=== PATIENT | female | born 1945 | race Caucasian/White ===

== ENCOUNTER 2024-06-28 14:11 | Emergency (ER) | payer MEDICARE, BC, SELFPAY ==
[2024-06-28 14:14] VITALS: BP 195/113
[2024-06-28 14:39] VITALS: BP 158/79
[2024-06-28 15:28] VITALS: BP 144/72
--- NOTE | 2024-06-28 15:52 | ED.GENMED ---
History of Present Illness
General
Chief Complaint: Blood Pressure Problem
Time Seen by Provider: 06/28/24 15:03
History of Present Illness
History of Present Illness:
78-year-old female presents the emergency department for evaluation of acute onset of dizziness/vertigo and near syncope that occurred earlier today. States she was at her kitchen counter making lunch, when she turned around she noted a sudden
onset of the symptoms. Denies syncope. Currently feels well. She is primarily concerned because she noted progressively elevating blood pressure at home, was taking her pressure every 30 minutes or so. Denies chest pain or shortness of breath
Review of Systems
Review of Systems
Allergies reviewed?: Yes
All Other Systems: ROS reviewed and negative except as documented in HPI and ROS
Phy Exam
Physical Exam
Physical Exam:
GEN: Well appearing, NAD, WDWN
HEENT: Oral mucosa moist, no scleral icterus
Cardiac: Regular rate with bigeminy of extrasystoles, no murmurs
Lung: No respiratory distress, no tachypnea, lungs clear to auscultation bilaterally
MSK: No gross deformity or injuries
Skin: Good color, no pallor or jaundice, no rashes
Neuro: AO x3, cranial nerves II through XII grossly intact, no nystagmus, moves all extremities freely
Psych: Calm, cooperative
Course
Orders/Labs/Results
Orders:
Orders
06/28/24 14:16
EKG [Electrocardiogram (*1)] Urgent
Reason for Study: Vertigo / Dizzy
EKG- Treatment ONCE
06/28/24 16:04
Complete Blood Count/With Diff Urgent
Comprehensive Metabolic Panel Urgent
Abnormal Lab Results
06/28/24
16:04
Absolute Lymphs (auto) 0.8 L 10^3/uL
(1.2-3.4)
Neutrophils % 82.7 H %
(42.2-75.2)
Lymphocytes % 11.4 L %
(20.5-51.1)
BUN 29 H mg/dl
(7-17)
Creatinine 1.3 H mg/dL
(0.6-1.0)
Alkaline Phosphatase 162 H U/L
(38-126)
06/28/24 16:04
06/28/24 16:04
Vital Signs
Initial and Last Documented VS:
Initial Vital Signs
Temp Pulse Resp BP Pulse Ox
98.8 F 86 18 195/113 98
06/28/24 14:14 06/28/24 14:14 06/28/24 14:14 06/28/24 14:14 06/28/24 14:14
Last Documented Vital Signs
Temp Pulse Resp BP Pulse Ox
98.8 F 78 17 155/105 95
06/28/24 14:14 06/28/24 16:30 06/28/24 16:30 06/28/24 16:32 06/28/24 16:30
MDM/Problems Addressed
MDM/Problems Addressed:
Patient is not orthostatic while in the emergency department. She is neurologically intact with unremarkable labs and normal EKG. Likely vasovagal near syncope on the basis of poor fluid intake today however brief episode of vertigo was also
considered. She is stable for outpatient management
*Critical Care Note
Total Time (30-74mins, 75-104mins- exclusive of procedures): Not Applicable
ED Attending Note
-
Portions of this chart may have been created with voice recognition software.� Occasional wrong word or��sound alike� substitutions may have occurred due to the inherent limitations of voice recognition software.
Discharge Plan
Departure
Patient Disposition: Home (Routine Discharge)
Date of Disposition: 06/28/24
Time of Disposition: 16:35
Patient with high blood pressure during this ER visit?: No
Discharge Problem:
Dizziness, Acute dehydration
Instructions: Dehydration, Adult ED
Referrals:
Nishant Baez MD [Family Provider] -
Interventions
Interventions:
*Risk Screen - Suicide Last Done: 06/28/24 14:14
*General Assessment Last Done: 06/28/24 14:14
*Neglect/Abuse Screening Last Done: 06/28/24 14:14
*ED COVID-19 Vaccine History Last Done: 06/28/24 14:14
*Nursing Disposition Last Done: 06/28/24 16:48
ED- Pulmonary Assessment Last Done: 06/28/24 16:00
ED- Neurological Assessment Last Done: 06/28/24 16:00
ED- Cardiac Assessment Last Done: 06/28/24 16:00
Discharge Date and Time
Discharge Date/Time: 06/28/24 16:49
Print Language: [place]
[2024-06-28 16:05] VITALS: BMI 23.5
[2024-06-28 16:15] LABS: % Basophils 0.4 % (0-2); % Eosinophils 0.3 % (0-6); % Immature Granulocytes 0.3 % (0-0.5); % Lymphocytes 11.4 % (20.5-51.1); % Monocytes 4.9 % (1.7-9.3); % Neutrophils 82.7 % (42.2-75.2); Absolute Lymphocytes 0.8 10^3/uL (1.2-3.4); Absolute Monocytes 0.3 10^3/uL (0.1-0.6); Absolute Neutrophils 5.6 10^3/uL (1.4-6.5); Hematocrit 40.3 % (37.0-47.0); Hemoglobin 13.7 g/dL (12.0-16.0); Mean Corpuscular Hgb 29.7 pg (27.0-31.0); Mean Corpuscular Volume 87.4 fL (81.0-99.0); Mean Platelet Volume 10.4 fL (7.4-10.4); Nucleated Red Blood Cells % 0 %; Platelet Count 286 10^3/uL (130-400); Red Blood Cell Count 4.61 10^6/uL (4.20-5.40); White Blood Cell Count 6.8 10^3/uL (4.8-10.8)
[2024-06-28 16:27] LABS: ALT (SGPT) 18 U/L (0-35); AST (SGOT) 30 U/L (14-36); Albumin 4.5 g/dl (3.5-5.0); Alkaline Phosphatase 162 U/L (38-126); Blood Urea Nitrogen 29 mg/dl (7-17); Calcium 9.7 mg/dl (8.4-10.2); Carbon Dioxide 27 mmol/L (22-30); Chloride 101 mmol/L (98-107); Estimated Creatinine Clearance 38 ml/min; Glucose 93 mg/dl (70-99); Potassium 5.1 mmol/L (3.5-5.1); Sodium 139 mmol/L (135-145); Total Bilirubin 0.4 mg/dl (0.2-1.3); Total Protein 7.2 g/dl (6.3-8.2); eGFR 42.62
[2024-06-28 16:32] VITALS: BP 155/105
== END 2024-06-28 16:49 | disposition home or self-care (01) ==
LOC: EMR 14:11
PROVIDERS: Physician Assistant; EMERGENCY PHYSICIAN Emergency Medicine; FAMILY PHYSICIAN Family Medicine
DX: R42 Dizziness and giddiness (principal); E86.0 Dehydration
CPT/HCPCS: 99284; 80053; 85025; 93005

== ENCOUNTER 2024-11-14 10:37 | Emergency (ER) | payer MEDICARE, BC, SELFPAY ==
[2024-11-14 10:51] VITALS: BP 181/85
--- NOTE | 2024-11-14 11:07 | ED.GENMED ---
History of Present Illness
General
Chief Complaint: Fall
Source: patient
Exam Limitations: none
Time Seen by Provider: 11/14/24 10:57
History of Present Illness
History of Present Illness:
79-year-old female presents after trip and fall. She was going for a walk in the park and got her foot caught on the sidewalk and fell hitting the left side of her head. No no loss of conscious but she was very dizzy following the event and
nauseous. She denies significant headache. She feels the nausea has resolved for the time. No neck pain. She denies arm or leg pain. No other complaints at this
Phy Exam
Physical Exam
Physical Exam:
General: Well-appearing female no acute respiratory distress
HEENT normocephalic 3 cm laceration superior to the left eye brow. Pupils equal round reactive to light TMs normal
Musculoskeletal exam: The spine is nontender. Good range of motion all extremities
Neurologic exam: Alert and oriented no facial asymmetry no slurred speech.
Course
Orders/Labs/Results
Orders:
Orders
11/14/24 11:05
CT Cervical Spine W/o Iv Contr Urgent
Comment:
Reason For Exam: fall
CT Head W/o Iv Contrast Urgent
Comment:
Reason For Exam: fall
Vital Signs
Initial and Last Documented VS:
Initial Vital Signs
Temp Pulse Resp BP Pulse Ox
98.1 F 67 17 181/85 99
11/14/24 10:51 11/14/24 10:51 11/14/24 10:51 11/14/24 10:51 11/14/24 10:51
Last Documented Vital Signs
Temp Pulse Resp BP Pulse Ox
98.1 F 67 17 181/85 99
11/14/24 10:51 11/14/24 10:51 11/14/24 10:51 11/14/24 10:51 11/14/24 10:51
Procedures
Laceration Closure
Left Eye brow:
Status of Wound: clean
Description of Wound Edges: sharp
Preparation: cleaned with saline
Anesthesia: 2% Lidocaine with epi
Revision/Debridement: minor revision
Wound exploration: all visible FB removed
Type of Closure: layered closure and interrupted sutures
Skin Closure Material: 5-0 prolene and 5-0 vicryl
Number of sutures: 7
MDM/Problems Addressed
Differential Diagnosis Includes:
Fall with laceration to left eyebrow. Head strike noted. CT of head and cervical spine pending. Wound will require suture closure
*Critical Care Note
Total Time (30-74mins, 75-104mins- exclusive of procedures): Not Applicable
Update Note
Update Note:
CT of head and cervical spine both reviewed and are negative for acute findings such as intracranial hemorrhage or cervical spine fracture. Patient reassured. Will apply antibacterial ointment stable for discharge with instruction to have sutures
removed in 5 days
ED Attending Note
-
Portions of this chart may have been created with voice recognition software.� Occasional wrong word or��sound alike� substitutions may have occurred due to the inherent limitations of voice recognition software.
Discharge Plan
Departure
Patient Disposition: Home (Routine Discharge)
Date of Disposition: 11/14/24
Time of Disposition: 13:10
Patient with high blood pressure during this ER visit?: No
Discharge Problem:
Laceration
Instructions: Laceration Repair With Stitches (DC)
Referrals:
Nishant Baez MD [Family Provider] -
Activity Restrictions/Additional Instructions:
Apply antibacterial meant daily. Have sutures removed in 5 days. You may take Tylenol if needed for pain. Return if worse otherwise
Interventions
Interventions:
*Risk Screen - Suicide Last Done: 11/14/24 10:52
*General Assessment Last Done: 11/14/24 10:52
*Neglect/Abuse Screening Last Done: 11/14/24 10:52
*ED- Fall Risk Assessment Last Done: 11/14/24 11:28
*ED COVID-19 Vaccine History Last Done: 11/14/24 10:52
ED- Neurological Assessment Last Done: 11/14/24 11:27
ED-Skin Assessment Last Done: 11/14/24 11:27
Discharge Date and Time
Print Language: [place]IZ[place]
[2024-11-14 13:17] VITALS: BP 143/74
== END 2024-11-14 13:40 | disposition home or self-care (01) ==
LOC: EMR 10:37
PROVIDERS: EMERGENCY PHYSICIAN Emergency Medicine; FAMILY PHYSICIAN Family Medicine
DX: S01.112A Laceration without foreign body of left eyelid and periocular area, initial encounter (principal); W01.0XXA Fall on same level from slipping, tripping and stumbling without subsequent striking against object, initial encounter; Y92.480 Sidewalk as the place of occurrence of the external cause
CPT/HCPCS: 99284; 12011; 70450; 72125

== ENCOUNTER → 2025-01-09 07:12 | Outpatient (REF) | payer MEDICARE, BC, SELFPAY | LOC: PAVMRI 07:12 | PROVIDERS: ATTENDING PHYSICIAN Nurse Practitioner; FAMILY PHYSICIAN Family Medicine | DX: R26.89 Other abnormalities of gait and mobility (principal); R42 Dizziness and giddiness; H91.8X3 Other specified hearing loss, bilateral; R25.1 Tremor, unspecified | CPT/HCPCS: 70553; A9575 ==